=== PATIENT | female | born 1960 | race Caucasian/White ===

== ENCOUNTER 2017-08-11 11:41 | Emergency (ER) | END 2017-08-11 15:09 | disposition home or self-care (01) ==

== ENCOUNTER 2017-11-04 13:57 | Emergency (ER) | END 2017-11-04 17:16 | disposition home or self-care (01) ==

== ENCOUNTER 2018-08-19 10:32 | Emergency (ER) | payer MEDICAID ==
[~2018-08-19] VITALS: Ht 162.6 cm; Wt 67.4 kg
[~2018-08-19 10:32] MED LIST: AZIT250T PO; CEPH-443 PO; D-ME473S2 PO; IBUP-1542 PO; IBUP-1706; PSEU120T12 PO
[2018-08-19 10:38] VITALS: Ht 162.6 cm; Wt 67.4 kg
[2018-08-19] MEDS ORDERED: SOD CHLORIDE 0.9% 1,000 ML IV STA (12:07)
[2018-08-19] MEDS ORDERED: ONDANSETRON 4 MG INJ IV STA (12:07)
[2018-08-19] MEDS ORDERED: KETOROLAC 15 MG INJ IV STA (12:07)
[2018-08-19] MEDS ORDERED: morphine 4 MG/ML VIAL IV STA (12:07)
--- NOTE | 2018-08-19 12:13 | ERD ---
ER Documentation Chief Complaint Chief Complaint lt flank pain , fever , headache , chills x 5 days HPI Translation services were utilized during this patient's encounter Language: [place]guill[place] Source: In person 57-year-old female no significant past medical history presents with 1 week of left flank pain. The patient is describing generalized malaise and chills for the past 5 days. She describes constant left-sided flank pain. Associated subjective fevers. She has a mild headache. Patient denies any dysuria urgency or frequency, no colicky pain, no migratory pain. No falls or injuries. Pain is moderate at this time. ROS All systems reviewed and are negative except as per history of present illness. Medications Home Meds Active Scripts Ciprofloxacin Hcl* (Ciprofloxacin Hcl*) 500 Mg Tablet, 500 MG PO BID for 10 Days, TAB Prov:TIFFANIE POLANCO MD 08/19/18 Ondansetron (Ondansetron Odt) 4 Mg Tab.rapdis, 4 MG PO Q6H PRN for NAUSEA AND/OR VOMITING, #10 TAB Prov:TIFFANIE POLANCO MD 08/19/18 Hydrocodone/Acetaminophen ([place] 10-325 Tablet) 1 Each Tablet, 1 TAB PO Q6H PRN for PAIN, #7 TAB Prov:TIFFANIE POLANCO MD 08/19/18 Ibuprofen* (Motrin*) 800 Mg Tab, 800 MG PO Q6H PRN for PAIN AND OR ELEVATED TEMP, #30 TAB Prov:TIFFANIE POLANCO MD 08/19/18 Dextromethorphan Hb-Promethazine Hcl* (Promethazine DM* Syrup) 473 Ml Syrup, 5 ML PO Q6 PRN for COUGH, #4 OZ Prov:GLENNY GALLARDO PA-C 11/04/17 Ibuprofen* (Motrin*) 600 Mg Tab, 600 MG PO Q6, #30 TAB Prov:GLENNY GALLARDO PA-C 11/04/17 Azithromycin* (Zithromax*) 250 Mg Tablet, 250 MG PO .ZPACK DIRECTED, #6 TAB TAKE 500 MG (2 TABS) THE FIRST DAY THEN 250 MG (1 TAB) DAYS 2-5 Prov:GLENNY GALLARDO PA-C 11/04/17 Cephalexin* (Keflex*) 500 Mg Capsule, 500 MG PO QID for 5 Days, CAP Prov:JUAN ANTONIO LOZADA 08/11/17 Azithromycin* (Zithromax*) 250 Mg Tablet, 250 MG PO DAILY for 5 Days, TAB Prov:LUCERO REEDER NP 03/14/15 Pseudoephedrine Hcl (Sudafed 12 Hour) 120 Mg Tablet.sa, 120 MG PO BID for 5 Days Prov:LUCERO REEDER NP 03/14/15 Reported Medications [none] No Conflict Check 03/23/12 Ibuprofen* Susp (Motrin* Susp) 20 Mg/Ml Susp 11/04/10 [None] No Conflict Check 05/31/10 Allergies Allergies: Coded Allergies: No Known Drug Allergies (Verified Allergy, Mild, 03/14/15) PMhx/Soc Medical and Surgical Hx: pt denies Medical Hx History of Surgery: Yes (APPY ) Anesthesia Reaction: No Hx Neurological Disorder: No Hx Respiratory Disorders: No Hx Cardiac Disorders: No Hx Psychiatric Problems: No Hx Miscellaneous Medical Probl: No Hx Alcohol Use: No Hx Substance Use: No Hx Tobacco Use: No Smoking Status: Never smoker FmHx Family History: No diabetes Physical Exam Vitals Vital Signs Date Temp Pulse Resp B/P (MAP) Pulse Ox O2 O2 Flow FiO2 Time Delivery Rate 08/19/18 99.9 87 18 117/72 97 10:38 (87) Physical Exam General: Uncomfortable Head: Normocephalic, atraumatic. Eyes: Pupils equally reactive, EOM intact ENT: Moist mucous membranes Neck: Supple, no lymphadenopathy Respiratory: Lungs clear bilaterally, no distress Cardiovascular: RRR, no murmurs, rubs, or gallops Abdominal: Soft, non-tender, non-distended, no peritoneal signs Back: Left CVAT : Deferred MSK: No edema, no unilateral swelling, 5/5 strength Neurologic: Alert and oriented, moving all extremities, normal speech, no focal weakness, no cerebellar signs Skin: No rash Psych: Normal mood Result Diagram: 08/19/18 1220 08/19/18 1220 Results 24 hrs Laboratory Tests Test 08/19/18 12:20 08/19/18 12:25 08/19/18 12:30 White Blood Count 8.3 10^3/ul Red Blood Count 4.82 10^6/ul Hemoglobin 13.6 g/dl Hematocrit 40.4 % Mean Corpuscular Volume 83.8 fl Mean Corpuscular Hemoglobin 28.2 pg Mean Corpuscular Hemoglobin Concent 33.7 g/dl Red Cell Distribution Width 12.8 % Platelet Count 175 10^3/UL Mean Platelet Volume 11.2 fl Immature Granulocytes % 0.200 % Neutrophils % 62.8 % Lymphocytes % 26.2 % Monocytes % 9.5 % Eosinophils % 0.6 % Basophils % 0.7 % Nucleated Red Blood Cells % 0.0 /100WBC Immature Granulocytes # 0.020 10^3/ul Neutrophils # 5.2 10^3/ul Lymphocytes # 2.2 10^3/ul Monocytes # 0.8 10^3/ul Eosinophils # 0.1 10^3/ul Basophils # 0.1 10^3/ul Nucleated Red Blood Cells # 0.0 10^3/ul Urine Color YELLOW Urine Clarity SLIGHTLY CLOUDY Urine pH 5.0 Urine Specific [place] 1.013 Urine Ketones NEGATIVE mg/dL Urine Nitrite POSITIVE mg/dL Urine Bilirubin NEGATIVE mg/dL Urine Urobilinogen NEGATIVE mg/dL Urine Leukocyte Esterase 1+ Eveline/ul Urine Microscopic RBC 5 /HPF Urine Microscopic WBC 83 /HPF Urine Squamous Epithelial Cells FEW /HPF Urine Bacteria FEW /HPF Urine Mucus FEW /HPF Urine Hemoglobin 1+ mg/dL Urine Glucose NEGATIVE mg/dL Urine Total Protein NEGATIVE mg/dl Sodium Level 143 mmol/L Potassium Level 3.5 mmol/L Chloride Level 103 mmol/L Carbon Dioxide Level 28 mmol/L Anion Gap 12 Blood Urea Nitrogen 10 mg/dl Creatinine 0.73 mg/dl Est Glomerular Filtrat Rate mL/min > 60 mL/min Glucose Level 107 mg/dl Calcium Level 9.6 mg/dl Total Bilirubin 0.7 mg/dl Direct Bilirubin 0.00 mg/dl Indirect Bilirubin 0.7 mg/dl Aspartate Amino Transf (AST/SGOT) 35 IU/L Alanine Aminotransferase (ALT/SGPT) 30 IU/L Alkaline Phosphatase 106 IU/L Total Protein 8.5 g/dl Albumin 4.5 g/dl Globulin 4.00 g/dl Albumin/Globulin Ratio 1.12 Lipase 114 U/L Bedside Urine pH (LAB) 5.5 Bedside Urine Protein (LAB) 1+ Bedside Urine Glucose (UA) Negative Bedside Urine Ketones (LAB) Negative Bedside Urine Blood Trace-lysed Bedside Urine Nitrite (LAB) Positive Bedside Urine Leukocyte Esterase (L 1+ POC Beta HCG, Qualitative NEGATIVE Current Medications Medications Dose Sig/Jorge Start Time Status Last (Trade) Ordered Route PRN Stop Time Admin Dose Reason Admin Sodium 1,000 ml @ Q1H STAT 08/19/18 DC 08/19/18 Chloride 1,000 mls/hr IV 12:07 08/19/18 12:19 13:06 Morphine 4 mg ONCE STAT 08/19/18 DC 08/19/18 Sulfate IV 12:07 08/19/18 12:23 (morphine) 12:08 Ondansetron 4 mg ONCE STAT 08/19/18 DC 08/19/18 HCl (Zofran IV 12:07 08/19/18 12:23 Inj) 12:08 Ketorolac 15 mg ONCE STAT 08/19/18 DC 08/19/18 Tromethamine IV 12:07 08/19/18 12:23 (Toradol) 12:08 Ceftriaxone 50 ml @ ONCE ONCE 08/19/18 08/19/18 Sodium 100 mls/hr IVPB 13:00 08/19/18 12:51 13:29 Procedures/MDM LAB INTERPRETATION: I reviewed the laboratory testing and it shows urinary tract infection MEDICAL DECISION MAKING: Patient's presentation is consistent with likely pyelonephritis. Patient has constant pain, CVAT and fever. Patient does not have colicky pain, no migratory pain to concern for possible ureteral colic versus diverticulitis. I do not believe CT imaging of the abdomen pelvis is necessary at this time. The patient will benefit from IV fluids, pain control medication. ER COURSE: * Patient's laboratory testing is reassuring. Urinalysis consistent with UTI. Clinical exam and history consistent with acute pyonephritis. Ceftriaxone provided. * Urine culture sent * The patient will do well on an outpatient basis. Return precautions were discussed and understood. * Pain and symptoms dramatically improved CONSULTATION: None DISPOSITION PLAN: The patient does not have an identifiable emergent medical condition that warrants inpatient hospitalization at this time. The patient is deemed safe for discharge with outpatient follow-up. We discussed follow up with the patient's primary care doctor within 24 to 48 hours as needed. We also discussed return to the emergency room for worsening symptoms or worsening condition. Outpatient referral: None required Discharge Medications: Ciprofloxacin,, [place], Motrin, Zofran NARCOTIC MEDICATION: The patient has been prescribed a narcotic medication during this encounter. The patient has been warned about the use of narcotics. The patient should not drive or operate heavy machinery while taking this medication. The patient was also warned about the addictive properties of narcotic medications. Narcan prescription was NOT provided given the following criteria: 1. No more than 5 tablets of [place] 10 mg or 10 tablets of [place] 5 mg were prescribed. 2. Concomitant opiate and benzodiazepine prescriptions were not provided. 3. There is no obvious evidence of prior history of opiate abuse or overdose. Departure Diagnosis: Primary Impression: Acute pyelonephritis Additional Impression: Flank pain Condition: Stable TIFFANIE POLANCO MD Aug 19, 2018 12:13
[2018-08-19] MEDS ORDERED: CEFTRIAXONE 1 GM/50 ML (PMX) 50 ML IVPB ONE (13:00)
[2018-08-19] MEDS ORDERED: CIPR500T4 PO (13:01)
[2018-08-19] MEDS ORDERED: ONDA4TAB14 PO (13:01)
[2018-08-19] MEDS ORDERED: IBUP800T48 PO (13:01)
[2018-08-19] MEDS ORDERED: HYDR-3980 PO (13:01)
[2018-08-19 13:36] VITALS: BP 99/64; PULSE 78; RESP 20
== END 2018-08-19 13:42 | disposition home or self-care (01) ==
LOC: E/R 10:32
DX: N12 Tubulo-interstitial nephritis, not specified as acute or chronic (principal)
CPT/HCPCS: 36415; 80053; 81001; 81003; 81025; 83690; 85025; 87086; 96361; 96365; 96375; J0696; J1885; J2270; J2405; J7030; Z7502

== ENCOUNTER 2018-10-03 23:12 | Emergency (ER) | payer MEDICAID ==
[~2018-10-03] VITALS: Ht 160 cm; Wt 66.6 kg
[~2018-10-03 23:12] MED LIST changes: +CIPR500T4 PO; +HYDR-3980 PO; +IBUP800T48 PO; +ONDA4TAB14 PO
[2018-10-03 23:16] VITALS: BP 165/82; PULSE 77; RESP 18; Ht 160 cm; Wt 66.6 kg
[2018-10-04] MEDS ORDERED: DEXAMETHASONE 4 MG TAB PO ONE
[2018-10-04] MEDS ORDERED: DIPHENHYDRAMINE 50 MG CAP PO ONE
== END 2018-10-04 00:38 | disposition home or self-care (01) ==
LOC: E/R 23:12
DX: S80.861A Insect bite (nonvenomous), right lower leg, initial encounter (principal); S80.862A Insect bite (nonvenomous), left lower leg, initial encounter; W57.XXXA Bitten or stung by nonvenomous insect and other nonvenomous arthropods, initial encounter; Y92.9 Unspecified place or not applicable
CPT/HCPCS: Z7502; Z7610; 99283